=== PATIENT | male | born 1995 | race Caucasian/White ===

== ENCOUNTER 2021-01-04 19:54 | Emergency (ER) | payer OTHER ==
[2021-01-04] MEDS ORDERED: Boostrix 0.5 ML (Tdap) VIAL ONE (22:53)
== END 2021-01-04 23:22 | disposition home or self-care (01) ==
LOC: MADERS 19:54
DX: S51.852A Open bite of left forearm, initial encounter (principal); S61.451A Open bite of right hand, initial encounter; Y04.1XXD Assault by human bite, subsequent encounter
CPT/HCPCS: 90471; 90715